=== PATIENT | male | born 1965 | race Caucasian/White ===

== ENCOUNTER 2021-05-29 14:53 | Emergency (ER) | payer BC ==
[~2021-05-29] VITALS: Wt 80.7 kg
[~2021-05-29 14:53] MED LIST: MOTRIN800 MG PO
[2021-05-29] MEDS ORDERED: AMOXICILLIN500 M3 PO (15:18)
[2021-05-29] MEDS ORDERED: NAPROXEN250 MG PO (15:18)
[2021-05-29] MEDS ORDERED: TYLENOL325 M1 PO (15:18)
[2021-05-29] MEDS ORDERED: PERIDEX118 ML MM (15:18)
== END 2021-05-29 15:41 | disposition home or self-care (01) ==
LOC: ED 14:53
DX: K04.7 Periapical abscess without sinus (principal)